=== PATIENT | male | born 1965 | race Caucasian/White ===

== ENCOUNTER 2018-02-17 23:15 | Emergency (ER) | payer MEDICAID ==
[~2018-02-17] VITALS: Ht 177.8 cm; Wt 112.9 kg
[2018-02-17 23:15] VITALS: BP_SYST 143
[2018-02-17 23:47] VITALS: BP_SYST 138
== END 2018-02-17 23:47 ==
LOC: SED 23:15
DX: E11.9 Type 2 diabetes mellitus without complications (principal); Z88.8 Allergy status to other drugs, medicaments and biological substances
CPT/HCPCS: 99283